=== PATIENT | male | born 1960 | race Two or more races ===

== ENCOUNTER 2019-04-15 15:00 | Emergency (ER) | payer BC, OTHER ==
[~2019-04-15] VITALS: Ht 165.1 cm; Wt 72.6 kg
--- NOTE | 2019-04-15 15:20 | NUR ---
BIB EMS 58 YEAR OLD MALE C/O DISLODGED G-TUBE. ALERT AND OREINTEDX2 NON VERBAL, BUT ABLE TO WRITE THINGS DOWN AND NODE HIS HEAD. BREATHING EVEN AND UNALBORED WITH NO DISTRESS NOTED. AWAITING TO BE SEEN BY
[2019-04-15] MEDS ORDERED: DIATR MEGLU/DIATRIZOATE SODIUM 30 ML BOTTLE (GASTROGRAPHIN) ONE (15:29)
--- NOTE | 2019-04-15 15:29 | NUR ---
REINERTED GT TUBE
--- NOTE | 2019-04-15 15:38 | NUR ---
XRAY AT BEDSIDE FOR KUB
[2019-04-15] MEDS: DIATR MEGLU/DIATRIZOATE SODIUM 30 ML BOTTLE (GASTROGRAPHIN) PO ONE (15:39)
[2019-04-15] MEDS ORDERED: MAGN400O6 GT (16:26)
[2019-04-15] MEDS ORDERED: CALC-7 GT (16:26)
[2019-04-15] MEDS ORDERED: ALLA266C2 TP (16:26)
[2019-04-15] MEDS ORDERED: POLY17PO4 GT (16:26)
[2019-04-15] MEDS ORDERED: GABA-532 GT (16:26)
[2019-04-15] MEDS ORDERED: OXYC5TAB3 GT (16:26)
[2019-04-15] MEDS ORDERED: NUTR150016 GT (16:26)
[2019-04-15] MEDS ORDERED: LEVA0.6320 IH ×2 (16:26)
[2019-04-15] MEDS ORDERED: SACC250C GT (16:26)
[2019-04-15] MEDS ORDERED: FERR300L GT (16:26)
[2019-04-15] MEDS ORDERED: VIT500LI GT (16:26)
[2019-04-15] MEDS ORDERED: CHLO118L6 TP (16:26)
[2019-04-15] MEDS ORDERED: BETA15CR4 TP (16:26)
[2019-04-15] MEDS ORDERED: MULT-447 GT (16:26)
[2019-04-15] MEDS ORDERED: IVER3TAB2 GT (16:26)
[2019-04-15] MEDS ORDERED: ONDA4TAB5 GT (16:26)
[2019-04-15] MEDS ORDERED: EPOE4000 SQ (16:26)
[2019-04-15] MEDS ORDERED: OMEP20CA15 GT (16:26)
[2019-04-15] MEDS ORDERED: IPRA0.2S9 IH ×2 (16:26)
[2019-04-15] MEDS ORDERED: NUTR1PAC14 GT (16:26)
[2019-04-15] MEDS ORDERED: BISA10SU11 RC (16:26)
[2019-04-15] MEDS ORDERED: THIA100T74 GT (16:26)
[2019-04-15] MEDS ORDERED: MAGN400T26 GT (16:26)
[2019-04-15] MEDS ORDERED: LACT10SO GT (16:26)
[2019-04-15] MEDS ORDERED: METH5TAB2 GT (16:26)
[2019-04-15] MEDS ORDERED: CALC500T13 GT (16:26)
[2019-04-15] MEDS ORDERED: CHLO473M5 MM (16:26)
[2019-04-15] MEDS ORDERED: SENN-168 GT (16:26)
[2019-04-15] MEDS ORDERED: IBUP-2413 GT (16:26)
[2019-04-15] MEDS ORDERED: DOCU50LI GT (16:26)
[2019-04-15] MEDS ORDERED: ZINC1CAP2 GT (16:26)
[2019-04-15] MEDS ORDERED: IBUP-1953 GT (16:26)
[2019-04-15] MEDS ORDERED: NA P133E RC (16:26)
[2019-04-15] MEDS ORDERED: METH500T6 GT (16:26)
--- NOTE | 2019-04-15 16:41 | NUR ---
[facility] [phone] ETA 1815 PER JEFF TRIP NUMBER [id number]
--- NOTE | 2019-04-15 16:54 | NUR ---
PT AWARE OF TRANSPORTATION. PT REMAINS STABLE. WILL CONTINUE TO MONITOR
--- NOTE | 2019-04-15 17:48 | NUR ---
REPORT GIVEN TO MARITZA AT [facility]. WILL WILL BE GOING BACK TO FACILITY
--- NOTE | 2019-04-15 18:36 | NUR ---
EMT TECHS FOR TRANSPORTATION ARE AT BEDSIDE
[2019-04-15 18:38] VITALS: BP 106/66
== END 2019-04-15 18:40 ==
LOC: ER 15:04
DX: K94.23 Gastrostomy malfunction (principal); I48.91 Unspecified atrial fibrillation; K21.9 Gastro-esophageal reflux disease without esophagitis; Z88.6 Allergy status to analgesic agent; Z88.8 Allergy status to other drugs, medicaments and biological substances; Z88.5 Allergy status to narcotic agent; Z79.899 Other long term (current) drug therapy
CPT/HCPCS: 31720; 43762; 74018; 99284; Q9963 ×2

== ENCOUNTER 2021-03-17 10:12 | Emergency (ER) | payer BC, OTHER ==
[~2021-03-17] VITALS: Ht 170.2 cm; Wt 61.7 kg
[~2021-03-17 10:12] MED LIST: ALLA266C2 TP; BETA15CR4 TP; BISA10SU11 RC; CALC-7 GT; CALC500T13 GT; CHLO118L6 TP; CHLO473M5 MM; DOCU50LI GT; EPOE4000 SQ; FERR300L GT; GABA-532 GT; IBUP-1953 GT; IBUP-2413 GT; IPRA0.2S9 IH; IVER3TAB2 GT; LACT10SO3 GT; LEVA0.6320 IH; MAGN400O6 GT; MAGN400T26 GT; METH500T6 GT; METH5TAB2 GT; MULT-447 GT; NA P133E RC; NUTR150016 GT; NUTR1PAC14 GT; OMEP20CA15 GT; ONDA4TAB5 GT; OXYC5TAB3 GT; POLY17PO4 GT; SACC250C GT; SENN-261 GT; THIA100T74 GT; VIT500LI GT; ZINC1CAP2 GT
[2021-03-17] MEDS ORDERED: EPINEPHRINE (1:10,000) SYRINGE 1 MG/10 ML DISP.SYRIN IVP ONE (10:16)
[2021-03-17] MEDS ORDERED: SODIUM BICARBONATE SYR 50 MEQ/50 ML DISP.SYRIN IV ONE (10:16)
[2021-03-17] MEDS ORDERED: CALCIUM CHLORIDE 1,000 MG/10 ML DISP.SYRIN IV ONE (10:16)
--- NOTE | 2021-03-17 10:22 | NUR ---
The patient is bibra[facility] frm [facility] for noted AMS and tachycardia. LKW 8am per report. The patient has trach and GT. The patient is not alert. Responsive to painful stimuli by trying to move his hand. Attached to the monitor. Will continue to monitor the patient.
--- NOTE | 2021-03-17 10:24 | NUR ---
BG 60 TAKEN BY [employer] HAND FRAME.
[2021-03-17] MEDS ORDERED: VANCOMYCIN 1 GM in IV D5W 250 ML IV ONE (10:30)
[2021-03-17] MEDS ORDERED: PIPERACILLIN /TAZOBACTAM 3.375 G in IV D5W 50 ML IV ONE (10:30)
[2021-03-17] MEDS ORDERED: IV NS 0.9% 1,000 ML BAG IV ONE ×2 (10:30)
--- NOTE | 2021-03-17 10:45 | NUR ---
IV LINE IS ESTABLISHED, BLOOD SPECIMEN COLLECTED AND SENT TO THE LAB
[2021-03-17] MEDS ORDERED: CRAN3875 GT (10:52)
[2021-03-17] MEDS ORDERED: CELE100C GT (10:52)
[2021-03-17] MEDS ORDERED: AMIT10TA6 GT (10:52)
[2021-03-17] MEDS ORDERED: ALBU0.633 IH (10:52)
--- NOTE | 2021-03-17 10:56 | NUR ---
MOVE SHEET SUBMITTED AND CALLED FOR TELMA BED
--- NOTE | 2021-03-17 10:57 | NUR ---
covid swab done and sent to the lab
--- NOTE | 2021-03-17 11:25 | NUR ---
Received an order of norepinephrine 8 MG /250 ML. The order is read back, verified. Noted and carried out.
--- NOTE | 2021-03-17 11:25 | NUR ---
RT AT PT'S BEDSIDE
[2021-03-17 11:28] LABS: BASOPHILS % (AUTO) 0.3 % (0.0-2.0); EOSINOPHILS % (AUTO) 0.4 % (0.0-6.0); LYMPHOCYTES # (AUTO) 0.1 K/uL (0.8-4.8); LYMPHOCYTES % (AUTO) 1.4 % (20.0-44.0); MEAN CORPUSCULAR HGB CONC 30 g/dl (31.0-36.0); MEAN CORPUSCULAR VOLUME 98 fL (80-96); MONOCYTES # (AUTO) 2.6 K/uL (0.1-1.30); MONOCYTES % (AUTO) 71.4 % (2.0-12.0); NEUTROPHILS % (AUTO) 26.5 % (43.0-81.0); WHITE BLOOD COUNT (AUTO) 3.7 K/uL (4.3-11.0)
[2021-03-17] MEDS ORDERED: NOREPINEPHRINE 8 MG in IV NS 0.9% 242 ML IV PRN (11:30)
[2021-03-17] MEDS ORDERED: NOREPINEPHRINE 8 MG in IV NS 0.9% 250ML IV PRN (11:30)
--- NOTE | 2021-03-17 11:34 | NUR ---
DR CHEN AT THE BEDSIDE INSERTING CENTRAL LINE
--- NOTE | 2021-03-17 11:35 | NUR ---
NO PULSE FELT, CPR ACTIVATED. PLEASE REFER TO CARDIOPULOMARY ARREST RECORD FOR MEDS AND INTERVENTIONS
--- NOTE | 2021-03-17 11:35 | NUR ---
RT AT THE BEDSIDE
[2021-03-17 11:38] LABS: RED BLOOD CELL COUNT(AUTO) 1.24 MIL/uL (4.5-6.0)
[2021-03-17 11:40] LABS: HEMATOCRIT 12 % (39-51); HEMOGLOBIN 3.6 g/dL (13.5-17.5); PLATELET COUNT (AUTO) 3 K/uL (150-450)
--- NOTE | 2021-03-17 11:50 | NUR ---
JENNIFER ZURITA AT PT'S BEDSIDE
--- NOTE | 2021-03-17 11:55 | NUR ---
HOSPITAL CODER AT PT'S BEDSIDE
[2021-03-17] MEDS ORDERED: SODIUM BICARBONATE SYR 50 MEQ/50 ML DISP.SYRIN ONE (12:01)
[2021-03-17 12:13] LABS: ALANINE AMINOTRANSFERASE < 6 U/L (12-78); ALKALINE PHOSPHATASE 40 U/L (46-116); ASPARTATE AMINOTRANSFERASE 13 U/L (15-37); BILIRUBIN,DIRECT 0.2 mg/dL (0.0-0.2); BILIRUBIN,TOTAL 0.3 mg/dL (0.2-1.0); CREATININE 0.9 mg/dL (0.6-1.3); SODIUM SERUM 148 mmol/L (136-145); TOTAL PROTEIN, SERUM 1.3 g/dL (6.4-8.2); UREA NITROGEN, BLOOD 47 mg/dL (7-18)
--- NOTE | 2021-03-17 12:13 | NUR ---
LOGISTIC MANAGER NIKKI [phone]
[2021-03-17 12:14] LABS: CHLORIDE 126 mmol/L (98-107)
--- NOTE | 2021-03-17 12:14 | NUR ---
DR JENNIFER ZURITA PRONOUCED PT'S 1214. NO PULSE, PUPILS FIXED, NO RESPONSE TO PAIN. NO RESPIRATIONS; CHEST DOES NOT RISE OR FALL.
[2021-03-17 12:17] LABS: CALCIUM, SERUM 2.6 mg/dL (8.5-10.1); CARBON DIOXIDE 9 mmol/L (21-32); GLUCOSE 16 mg/dL (74-106); POTASSIUM 1.8 mmol/L (3.5-5.1)
[2021-03-17 12:18] LABS: ALBUMIN 0.2 g/dL (3.4-5.0)
--- NOTE | 2021-03-17 12:34 | NUR ---
CALLED [facility] AT 1221, SPOKE TO WILBER REF# [id number], NOT A CANDIDATE FOR [employer], CAN RELEASE BODY.
--- NOTE | 2021-03-17 12:39 | NUR ---
CALLED [facility] [employer] AND SPOKE TO RADHA. PT'S IS NOT A CORONERS CASE AND MAY BE RELEASED TO THE FAMILY.
--- NOTE | 2021-03-17 12:47 | NUR ---
CALLED DR. KIRSTEN JIMÉNEZ AND SPOKE TO INDAR ([employer]) TO REPORT PT AND TO SIGN CERTIFICATE.
--- NOTE | 2021-03-17 12:55 | NUR ---
SPOKE TO BROTHJW TATUM. STATES WILL BE HERE AT AROUND 1331
--- NOTE | 2021-03-17 13:02 | NUR ---
REPORTED PT'S TO BROTHER NIKKI ETA TO VISIT PT [id number]
[2021-03-17 13:18] VITALS: BP 65/25
--- NOTE | 2021-03-17 15:18 | NUR ---
RT Received pt on size Portex 7 UNCUFFED trach. Changed trach to Portex 7 CUFFED per MD Bales verbal order and placed pt on vent. Settings given by . @[id number] began CPR.
== END 2021-03-17 13:28 ==
LOC: ER 10:15
DX: A41.9 Sepsis, unspecified organism (principal); R65.21 Severe sepsis with septic shock; D65 Disseminated intravascular coagulation [defibrination syndrome]; D64.9 Anemia, unspecified; Z93.0 Tracheostomy status; G40.909 Epilepsy, unspecified, not intractable, without status epilepticus; G93.1 Anoxic brain damage, not elsewhere classified; J96.90 Respiratory failure, unspecified, unspecified whether with hypoxia or hypercapnia; Z20.822 Contact with and (suspected) exposure to COVID-19; I50.33 Acute on chronic diastolic (congestive) heart failure; I48.0 Paroxysmal atrial fibrillation; E43 Unspecified severe protein-calorie malnutrition; G93.41 Metabolic encephalopathy; Z99.11 Dependence on respirator [ventilator] status; I21.4 Non-ST elevation (NSTEMI) myocardial infarction; E87.6 Hypokalemia; E87.8 Other disorders of electrolyte and fluid balance, not elsewhere classified; R00.1 Bradycardia, unspecified; E87.2 Acidosis; Z68.21 Body mass index [BMI] 21.0-21.9, adult; D72.819 Decreased white blood cell count, unspecified; D69.6 Thrombocytopenia, unspecified; Z93.1 Gastrostomy status; Z79.899 Other long term (current) drug therapy; Z88.6 Allergy status to analgesic agent; Z88.5 Allergy status to narcotic agent; J95.09 Other tracheostomy complication; E86.1 Hypovolemia
CPT/HCPCS: 31500; 36415; 36430; 36556; 71045; 80048; 80076; 83605; 83880; 84145; 84484; 85007; 85025; 85730; 87040 ×2; 87077; 87186 ×2; 87426; 92950; 93005; 96365; 96368; 99291; C9803; J0171; J2543; J3490 ×2; J7030 ×3; J7060; U0003; J3370; J7050